=== PATIENT | male | born 1985 | race Caucasian/White ===

== ENCOUNTER 2019-08-25 09:36 | Emergency (ER) | payer SELFPAY ==
[~2019-08-25] VITALS: Ht 165.1 cm; Wt 81.6 kg
[2019-08-25 09:40] VITALS: BP 125/76; Ht 165.1 cm; Wt 81.6 kg
== END 2019-08-25 12:46 | disposition home or self-care (01) ==
LOC: ED 09:36
DX: S71.112A Laceration without foreign body, left thigh, initial encounter (principal); X99.1XXA Assault by knife, initial encounter; Y93.89 Activity, other specified; Y92.89 Other specified places as the place of occurrence of the external cause; Y99.8 Other external cause status
CPT/HCPCS: J2001